=== PATIENT | female | born 1950 | race Two or more races ===

== ENCOUNTER 2023-06-05 05:13 | Day surgery (SDC) | payer OTHER ==
[~2023-06-05 05:13] MED LIST: COZAAR25 MG PO; CRESTOR5 MG PO; LEXAPRO PO; NEUPRO1 EACH TD; TENORMIN25 MG PO
[2023-06-05] MEDS ORDERED: IBU600 MG PO (08:28)
== END 2023-06-05 13:50 | disposition home or self-care (01) ==
LOC: CIR.AMB 05:13
PROVIDERS: ATTEND Obstetrics & Gynecology Gynecology
DX: N84.0 Polyp of corpus uteri (principal); N95.0 Postmenopausal bleeding; Z20.822 Contact with and (suspected) exposure to COVID-19; E78.5 Hyperlipidemia, unspecified; I10 Essential (primary) hypertension

== ENCOUNTER 2023-08-25 23:50 | Emergency (ER) | payer OTHER ==
[~2023-08-25] VITALS: Ht 162.6 cm; Wt 64.4 kg
[~2023-08-25 23:50] MED LIST changes: +IBU600 MG PO
== END 2023-08-26 04:10 | disposition home or self-care (01) ==
LOC: ER 23:51
DX: S52.592A Other fractures of lower end of left radius, initial encounter for closed fracture (principal); W18.39XA Other fall on same level, initial encounter; Y93.89 Activity, other specified; Y92.018 Other place in single-family (private) house as the place of occurrence of the external cause